=== PATIENT | male | born 1940 | race Caucasian/White ===

== ENCOUNTER → 2016-10-14 | Outpatient (CLI) | payer OTHER ==
[~2016-10-14] MED LIST: ALBU2.5V NPPB; ALBU8.5H3 INH; FLUT1DIS IH; LEVO750T26 PO; METOPROLOL; PRED-402 PO; PRED5TAB PO; SPIR25TA3 PO; TIOT18CA INH
== END | disposition home or self-care (01) ==
LOC: RAD 09:52
PROVIDERS: ATTEND Internal Medicine Critical Care Medicine
DX: J44.9 Chronic obstructive pulmonary disease, unspecified (principal)
CPT/HCPCS: 71020

== ENCOUNTER 2017-04-01 15:00 | Inpatient (IN) | payer OTHER ==
[~2017-04-01] VITALS: Ht 165.1 cm; Wt 58.3 kg
[~2017-04-01 15:00] MED LIST changes: -ALBU8.5H3 INH; +ALBU8.5H8 INH
[2017-04-01] MEDS ORDERED: ALBUTEROL/IPRATROPIUM 2.5MG/0.5MG, 3 ML NPPB ONE (15:30)
[2017-04-01] MEDS ORDERED: ALBUTEROL/IPRATROPIUM 2.5MG/0.5MG, 3 ML ONE (15:35)
[2017-04-01 15:43] LABS: HEMATOCRIT 45.8 % (39.2-51.8); HEMOGLOBIN 15.4 g/dL (13.7-18.0); WHITE BLOOD COUNT 8.4 x10^3/uL (3.4-10)
[2017-04-01 15:56] LABS: ASPARTATE AMINO TRANSFERASE 16 U/L (15-37); BLOOD UREA NITROGEN 20 mg/dL (7-18)
[2017-04-01] MEDS ORDERED: methylPREDNISolone SOD SUCC 125 MG/2 ML IVP ONE (16:00)
[2017-04-01] MEDS ORDERED: AZITHROMYCIN 500 MG in SODIUM CHLORIDE 0.9% 250 ML IVPB ONE (16:00)
[2017-04-01 16:02] LABS: IS PT STATUS REG ER OR PRE ER? YES
[2017-04-01] MEDS ORDERED: methylPREDNISolone SOD SUCC 125 MG/2 ML ONE (16:03)
[2017-04-01] MEDS ORDERED: CEFTRIAXONE PMX 1GM/50ML 50 ML ONE (16:06)
[2017-04-01] MEDS ORDERED: SODIUM CHLORIDE 0.9% 1,000ML IVBOLUS ONE (16:30)
[2017-04-01] MEDS ORDERED: SODIUM CHLORIDE FLUSH 10ML SYR IVF ONE (16:30)
[2017-04-01 16:54] LABS: RAPID INFLUENZA A Negative (Negative); RAPID INFLUENZA B Negative (Negative)
[2017-04-01] MEDS ORDERED: CEFTRIAXONE PMX 1GM/50ML 50 ML IVPB ONE (17:00)
[2017-04-01] MEDS ORDERED: OMNIPAQUE 350 MG/ML, 75ML BOTTLE ONE (17:31)
[2017-04-01] MEDS ORDERED: ONDANSETRON 2MG/ML, 2ML IVPush PRN (19:00)
[2017-04-01] MEDS ORDERED: GUAIFENESIN/DM 200-20MG, 10ML UDC PO PRN (19:00)
[2017-04-01] MEDS ORDERED: hydrALAzine 20 MG/ML, 1ML IVPush PRN (19:00)
[2017-04-01] MEDS ORDERED: ACETAMINOPHEN 325 MG TABLET PO PRN (19:00)
[2017-04-01] MEDS ORDERED: BISACODYL 10 MG SUPP PR PRN (19:00)
[2017-04-01] MEDS ORDERED: POLYETHYLENE GLYCOL 17 GM PACKET PO PRN (19:00)
[2017-04-01 19:10] VITALS: BP 117/73
[2017-04-01] MEDS ORDERED: ALBUTEROL/IPRATROPIUM 2.5MG/0.5MG, 3 ML NPPB PRN (19:30)
[2017-04-01] MEDS: ALBUTEROL/IPRATROPIUM 2.5MG/0.5MG, 3 ML NPPB SCH (20:00)
[2017-04-01 20:50] VITALS: BP 117/73
[2017-04-01] MEDS: HEPARIN 5,000 UNITS/ML, 1ML SQ SCH (20:54)
[2017-04-01] MEDS: SODIUM CHLORIDE FLUSH 10ML SYR IVF SCH (20:55)
[2017-04-02] MEDS: methylPREDNISolone SOD SUCC 125 MG/2 ML IVPush SCH ×3 (00:42→16:47)
[2017-04-02] MEDS: HEPARIN 5,000 UNITS/ML, 1ML SQ SCH ×3 (04:56→20:22)
[2017-04-02 06:40] LABS: HEMATOCRIT 40.8 % (39.2-51.8); HEMOGLOBIN 13.7 g/dL (13.7-18.0); WHITE BLOOD COUNT 7.2 x10^3/uL (3.4-10)
[2017-04-02] MEDS: ALBUTEROL/IPRATROPIUM 2.5MG/0.5MG, 3 ML NPPB SCH ×4 (07:00→18:55)
[2017-04-02 07:05] LABS: ASPARTATE AMINO TRANSFERASE 14 U/L (15-37); BLOOD UREA NITROGEN 21 mg/dL (7-18)
[2017-04-02 07:43] VITALS: BP 123/69
[2017-04-02] MEDS: SPIRONOLACTONE 25 MG TABLET PO SCH (08:00)
[2017-04-02] MEDS ORDERED: SENNA/DOCUSATE TABLET PO SCH (09:00)
[2017-04-02] MEDS: TEMPLATE NON-FORMULARY MED. (Tiotropium Bromide** (Spiriva**) 18 MCG) INH SCH (09:23)
[2017-04-02] MEDS: FLUTICASONE/VILANTEROL 100-25MCG/INH INH SCH (09:52)
[2017-04-02] MEDS: SODIUM CHLORIDE FLUSH 10ML SYR IVF SCH ×2 (09:52→20:22)
[2017-04-02] MEDS: CEFTRIAXONE PMX 1GM/50ML 50 ML IV SCH (16:46)
[2017-04-02] MEDS: AZITHROMYCIN 500 MG in SODIUM CHLORIDE 0.9% 250 ML IV SCH (17:44)
[2017-04-02 19:59] VITALS: BP 114/52
[2017-04-03] MEDS: methylPREDNISolone SOD SUCC 125 MG/2 ML IVPush SCH ×3 (01:26→16:39)
[2017-04-03 03:45] VITALS: BP 122/68
[2017-04-03] MEDS: HEPARIN 5,000 UNITS/ML, 1ML SQ SCH ×3 (05:09→20:39)
[2017-04-03 05:32] LABS: HEMATOCRIT 37.2 % (39.2-51.8); HEMOGLOBIN 12.4 g/dL (13.7-18.0); WHITE BLOOD COUNT 15.4 x10^3/uL (3.4-10)
[2017-04-03 05:34] LABS: BLOOD UREA NITROGEN 17 mg/dL (7-18)
[2017-04-03] MEDS: ALBUTEROL/IPRATROPIUM 2.5MG/0.5MG, 3 ML NPPB SCH ×4 (06:45→19:08)
[2017-04-03 08:30] VITALS: BP 115/58
[2017-04-03] MEDS: FLUTICASONE/VILANTEROL 100-25MCG/INH INH SCH (08:33)
[2017-04-03] MEDS: SODIUM CHLORIDE FLUSH 10ML SYR IVF SCH ×2 (08:34→20:35)
[2017-04-03] MEDS: SPIRONOLACTONE 25 MG TABLET PO SCH (08:34)
[2017-04-03] MEDS: SENNA/DOCUSATE TABLET PO SCH (08:34)
[2017-04-03] MEDS: TEMPLATE NON-FORMULARY MED. (Tiotropium Bromide** (Spiriva**) 18 MCG) INH SCH (08:34)
[2017-04-03 13:30] VITALS: BP 109/62
[2017-04-03] MEDS: CEFTRIAXONE PMX 1GM/50ML 50 ML IV SCH (16:39)
[2017-04-03] MEDS: AZITHROMYCIN 500 MG in SODIUM CHLORIDE 0.9% 250 ML IV SCH (19:29)
[2017-04-03 20:07] VITALS: BP 126/63
[2017-04-04 00:14] VITALS: BP 122/66
[2017-04-04] MEDS: methylPREDNISolone SOD SUCC 125 MG/2 ML IVPush SCH ×2 (00:34→10:03)
[2017-04-04 05:48] LABS: HEMATOCRIT 34.6 % (39.2-51.8); HEMOGLOBIN 11.6 g/dL (13.7-18.0); WHITE BLOOD COUNT 15.4 x10^3/uL (3.4-10)
[2017-04-04 05:58] LABS: BLOOD UREA NITROGEN 21 mg/dL (7-18)
[2017-04-04] MEDS: HEPARIN 5,000 UNITS/ML, 1ML SQ SCH ×2 (06:05→13:00)
[2017-04-04] MEDS: ALBUTEROL/IPRATROPIUM 2.5MG/0.5MG, 3 ML NPPB SCH ×2 (07:00→10:42)
[2017-04-04 07:37] VITALS: BP 132/62
[2017-04-04] MEDS: SODIUM CHLORIDE FLUSH 10ML SYR IVF SCH (09:00)
[2017-04-04] MEDS: TEMPLATE NON-FORMULARY MED. (Tiotropium Bromide** (Spiriva**) 18 MCG) INH SCH (09:00)
[2017-04-04] MEDS ORDERED: PANT40GR PO (10:04)
[2017-04-04] MEDS: FLUTICASONE/VILANTEROL 100-25MCG/INH INH SCH (10:04)
[2017-04-04] MEDS ORDERED: AMOX1TAB64 PO (10:04)
[2017-04-04] MEDS: SENNA/DOCUSATE TABLET PO SCH (10:04)
[2017-04-04] MEDS: SPIRONOLACTONE 25 MG TABLET PO SCH (10:05)
== END 2017-04-04 14:33 | disposition home or self-care (01) | DRG 189 ==
LOC: ED 17:11 → EDIP 17:55 → 3NE 18:46
PROVIDERS: ADMIT Hospitalist; ATTEND Hospitalist
DX: J96.21 Acute and chronic respiratory failure with hypoxia (principal); J44.0 Chronic obstructive pulmonary disease with (acute) lower respiratory infection; Z99.81 Dependence on supplemental oxygen; J44.1 Chronic obstructive pulmonary disease with (acute) exacerbation; J20.9 Acute bronchitis, unspecified; F12.90 Cannabis use, unspecified, uncomplicated; I10 Essential (primary) hypertension; I25.10 Atherosclerotic heart disease of native coronary artery without angina pectoris; Z82.3 Family history of stroke; Z87.891 Personal history of nicotine dependence; Z95.5 Presence of coronary angioplasty implant and graft; R00.0 Tachycardia, unspecified
CPT/HCPCS: 36415; 71010; 71260; 80048; 80053; 83605; 83880; 84484; 85025; 87040; 87070; 87205; 87400; 93005; 94640; 96365; 96367; 96375; J0456; J0696; J1644; J7620; Q9967; J2930; J7030; J7050

== ENCOUNTER → 2017-12-18 | Outpatient (CLI) | payer OTHER ==
[~2017-12-18] MED LIST changes: +AMOX1TAB64 PO; +PANT40GR PO; +REGADENOSON 0.4 MG/5 ML SYRINGE ONE
== END | disposition home or self-care (01) ==
LOC: CFH 09:32
PROVIDERS: ATTEND Internal Medicine Cardiovascular Disease
DX: I10 Essential (primary) hypertension (principal); J44.9 Chronic obstructive pulmonary disease, unspecified; E78.5 Hyperlipidemia, unspecified; Z95.5 Presence of coronary angioplasty implant and graft
CPT/HCPCS: 93306; J2785

== ENCOUNTER → 2019-07-04 | Outpatient (CLI) | payer MEDICARE ==
[~2019-07-04] MED LIST changes: +ASPI-496 PO; +ATOR40TA78 PO; +CARV3.122 PO; +CEFD300C37 PO; +PRED20TA PO; -REGADENOSON 0.4 MG/5 ML SYRINGE ONE; -SPIR25TA3 PO; +SPIR25TA5 PO
== END | disposition home or self-care (01) ==
LOC: CFH 12:22
PROVIDERS: ATTEND Nurse Practitioner Family
DX: J43.9 Emphysema, unspecified (principal); R91.8 Other nonspecific abnormal finding of lung field
CPT/HCPCS: 71250

== ENCOUNTER → 2021-02-04 | Outpatient (CLI) | payer MEDICARE ==
[~2021-02-04] MED LIST changes: +AZIT500T10 PO; +LISI2.5T PO; +OMEP-110 PO; +PRED10TA PO; +TRIA1CAP3 PO
== END | disposition home or self-care (01) ==
LOC: RAD 14:26
PROVIDERS: ATTEND Nurse Practitioner Family
DX: J18.9 Pneumonia, unspecified organism (principal)
CPT/HCPCS: 71046